=== PATIENT | male | born 1995 | race Two or more races ===

== ENCOUNTER 2017-06-02 20:37 | Emergency (ER) | payer OTHER ==
[~2017-06-02] VITALS: Ht 165.1 cm; Wt 68.0 kg
[2017-06-02 21:06] VITALS: BP 112/73
--- NOTE | 2017-06-02 21:35 | NUR ---
PT REFUSED XR RT KNEE. NATHAN GIMENEZ AWARE.
== END 2017-06-02 21:47 | disposition home or self-care (01) ==
LOC: ER 20:45
DX: M25.561 Pain in right knee (principal)
CPT/HCPCS: 99282; A4606; Z7610

== ENCOUNTER 2018-11-04 19:54 | Emergency (ER) | payer BC, OTHER ==
[~2018-11-04] VITALS: Ht 167.6 cm; Wt 68.0 kg
[2018-11-04 20:09] VITALS: BP 116/76
--- NOTE | 2018-11-04 20:18 | NUR ---
TECH AT BEDSIDE FOR EKG
== END 2018-11-04 21:54 | disposition home or self-care (01) ==
LOC: ER 19:54
DX: R07.89 Other chest pain (principal); F10.10 Alcohol abuse, uncomplicated; Y90.9 Presence of alcohol in blood, level not specified
CPT/HCPCS: 71045-TC